=== PATIENT | male | born 1985 | race American Indian/Alaskan Native ===

== ENCOUNTER 2020-09-30 02:13 | Emergency (ER) | payer SELFPAY ==
--- NOTE | 2020-09-30 03:36 | Emergency Department Report ---
ED General Adult HPI - General Stated complaint: BILATERAL LEG INFECTION - History of Present Illness Initial comments: Patient is a 35-year-old -[place] male with no past medical history presents to the ED with acute onset persistent intermittent erythematous maculopapular nonfluctuant rashes on his upper and lower extremities bilaterally for the last 2 weeks. Patient states that he was initially evaluated and treated at another hospital emergency department and was given antibiotic injections which he described as thick and white suspected to be Bicillin LA for a total of 1,200,000 units and was then discharged home on clindamycin which he took for 7 days with no relief. Patient states that the rashes have worsened especially in the last 3 days such that "they are popping everywhere". Patient states that his girlfriend has also contracted the same rashes and are getting worse. Patient denies dizziness, syncope, fever, chills, nausea, vomiting, diarrhea, traumatic injury, insect bite, back pain, abdominal pain, chest pain or shortness of breath. MD Complaint: Swollen maculopapular painful rashes on upper and lower extremities -: Sudden, week(s) (2) Location: upper extremity, lower extremity Radiation: non-radiation Severity scale (0 -10): 7 Quality: aching, sharp Consistency: constant Improves with: none Worsens with: none Associated Symptoms: rash (painful erythematous maculopapular rashes). denies: denies other symptoms, confusion, chest pain, cough, diaphoresis, fever/chills, loss of appetite, malaise, shortness of breath, syncope, weakness Treatments Prior to Arrival: none - Related Data Previous Rx's Medication Instructions Recorded Last Taken Type Acetaminophen/Codeine [Tylenol 1 tab PO Q6H PRN #12 tab 09/30/20 Unknown Rx /Codeine # 3 tab] DOXYCYCLINE Hyclate [Vibramycin 100 mg PO Q12HR #28 capsule 09/30/20 Unknown Rx CAP] Ibuprofen [Motrin] 800 mg PO Q8HR PRN #30 tablet 09/30/20 Unknown Rx Ondansetron [Zofran Odt] 4 mg PO Q8HR PRN #15 tab.rapdis 09/30/20 Unknown Rx Sulfamethoxazole/Trimethoprim 1 each PO Q12H #20 tablet 09/30/20 Unknown Rx [Bactrim DS TAB] Allergies Allergy/AdvReac Type Severity Reaction Status Date / Time No Known Allergies Allergy Unverified 09/30/20 04:14 ED Review of Systems ROS: Stated complaint: BILATERAL LEG INFECTION Other details as noted in HPI Constitutional: denies: chills, fever Eyes: denies: eye pain, eye discharge, vision change ENT: denies: ear pain, throat pain Respiratory: denies: cough, shortness of breath, wheezing Cardiovascular: denies: chest pain, palpitations Endocrine: no symptoms reported Gastrointestinal: denies: abdominal pain, nausea, diarrhea Genitourinary: denies: urgency, dysuria Musculoskeletal: denies: back pain, joint swelling, arthralgia Skin: rash (swollen mildly erythematous maculopapular rashes on lower and upper extremities ). denies: lesions Neurological: denies: headache, weakness, paresthesias Psychiatric: denies: anxiety, depression Hematological/Lymphatic: denies: easy bleeding, easy bruising ED Past Medical Hx - Medications Home Medications: Home Medications Medication Instructions Recorded Confirmed Last Taken Type Acetaminophen/Codeine [Tylenol 1 tab PO Q6H PRN #12 tab 09/30/20 Unknown Rx /Codeine # 3 tab] DOXYCYCLINE Hyclate [Vibramycin 100 mg PO Q12HR #28 capsule 09/30/20 Unknown Rx CAP] Ibuprofen [Motrin] 800 mg PO Q8HR PRN #30 tablet 09/30/20 Unknown Rx Ondansetron [Zofran Odt] 4 mg PO Q8HR PRN #15 tab.rapdis 09/30/20 Unknown Rx Sulfamethoxazole/Trimethoprim 1 each PO Q12H #20 tablet 09/30/20 Unknown Rx [Bactrim DS TAB] ED Physical Exam - General General appearance: alert, in no apparent distress - Head Head exam: Present: atraumatic, normocephalic, normal inspection - Eye Eye exam: Present: normal appearance, PERRL, EOMI Pupils: Present: normal accommodation - ENT ENT exam: Present: normal exam, normal orophraynx, mucous membranes moist, TM's normal bilaterally, normal external ear exam - Neck Neck exam: Present: normal inspection, full ROM - Respiratory Respiratory exam: Present: normal lung sounds bilaterally. Absent: respiratory distress, wheezes, rhonchi, stridor, chest wall tenderness, accessory muscle use, prolonged expiratory - Cardiovascular Cardiovascular Exam: Present: normal rhythm, bradycardia, normal heart sounds. Absent: systolic murmur, diastolic murmur, rubs, gallop - GI/Abdominal GI/Abdominal exam: Present: soft, normal bowel sounds. Absent: tenderness, guarding, hyperactive bowel sounds, hypoactive bowel sounds, organomegaly - Extremities Exam Extremities exam: Present: normal inspection, full ROM, normal capillary refill - Back Exam Back exam: Present: normal inspection, full ROM. Absent: tenderness, CVA tenderness (R), CVA tenderness (L), muscle spasm, paraspinal tenderness, vertebral tenderness - Neurological Exam Neurological exam: Present: alert, oriented X3, CN II-XII intact, normal gait, reflexes normal - Psychiatric Psychiatric exam: Present: normal affect, normal mood - Skin Skin exam: Present: warm, dry, intact, normal color, rash (Mild erythematous maculopapular nonfluctuant tender rashes in the upper and lower extremities as well as on the buttocks and on the trunk), erythema ED Course Vital Signs 09/30/20 04:07 Temperature 98.6 F Pulse Rate 57 L Respiratory 18 Rate Blood Pressure 114/75 O2 Sat by Pulse 99 Oximetry ED Medical Decision Making - Medical Decision Making This is a 35-year-old -[place] male with no past medical history presents to the ED with acute onset persistent intermittent erythematous maculopapular nonfluctuant rashes on his upper and lower extremities bilaterally for the last 2 weeks. Patient states that he was initially evaluated and treated at another hospital emergency department and was given antibiotic injections which he described as thick and white suspected to be Bicillin LA for a total of 1,200,000 units and was then discharged home on clindamycin which he took for 7 days with no relief. Patient states that the rashes have worsened especially in the last 3 days such that "they are popping everywhere". Patient states that his girlfriend has also contracted the same rashes and are getting worse. In the ED, patient is alert and oriented x3 and is not in any distress. Based on the history and physical exam findings, the patient is likely having acute folliculitis, cellulitis versus abscess. Therefore the patient was discharged home on medications including antibiotics and pain medication and advised to follow-up with his primary care physician in 7 to 10 days for reevaluation. Patient was advised return to the ED immediately if symptoms get worse. - Differential Diagnosis Cellulitis; folliculitis; abscess; irritant dermatitis Critical care attestation.: If time is entered above; I have spent that time in minutes in the direct care of this critically ill patient, excluding procedure time. ED Disposition Clinical Impression: Acute folliculitis, Cellulitis and abscess of lower extremity Disposition: TO HOME OR SELFCARE Is pt being admited?: No Does the pt Need Aspirin: No Condition: Stable Instructions: Skin Abscess, [id number], Cellulitis, Adult, [id number], Folliculitis Additional Instructions: Take medication with food, drink plenty of fluids and follow-up with your primary care physician in 7 to 10 days for reevaluation. Return to the ED immediately if symptoms get worse. Prescriptions: Sulfamethoxazole/Trimethoprim [Bactrim DS TAB] 1 each PO Q12H #20 tablet Ibuprofen [Motrin] 800 mg PO Q8HR PRN #30 tablet PRN Reason: Pain , Severe (7-10) Acetaminophen/Codeine [Tylenol /Codeine # 3 tab] 1 tab PO Q6H PRN #12 tab PRN Reason: Pain , Severe (7-10) DOXYCYCLINE Hyclate [Vibramycin CAP] 100 mg PO Q12HR #28 capsule Ondansetron [Zofran Odt] 4 mg PO Q8HR PRN #15 tab.rapdis PRN Reason: Nausea Referrals: [facility] [Provider Group] - 3-5 Days Forms: Work/School Release Form(ED) Time of Disposition: 03:34 Print Language: ALGERIAN
[2020-09-30 04:17] VITALS: BP 114/75
== END 2020-09-30 04:23 | disposition home or self-care (01) ==
LOC: ED 02:13
DX: L73.8 Other specified follicular disorders (principal); L03.116 Cellulitis of left lower limb; L03.115 Cellulitis of right lower limb; Z79.899 Other long term (current) drug therapy
CPT/HCPCS: 99282